=== PATIENT | female | born 1950 | race Caucasian/White ===

== ENCOUNTER 2020-10-15 14:07 | Outpatient (RCR) | payer MEDICARE, SELFPAY | END 2021-10-04 14:17 | disposition home or self-care (01) | LOC: HO.PT 14:07 | PROVIDERS: PCP Internal Medicine; Visit Provider Internal Medicine | DX: M54.5 Low back pain (principal) ==

== ENCOUNTER 2020-12-10 19:27 | Emergency (ER) | payer MEDICARE, SELFPAY ==
--- NOTE | ~2020-12-10 | XR_ITS ---
EXAMINATION: XR HIP, LEFT CLINICAL INFORMATION: Left hip pain. COMPARISON: None TECHNIQUE: Two views of the left hip. FINDINGS: There is no acute fracture or dislocation. Minimal bilateral hip degenerative joint changes are seen. Left hemipelvis is intact. The soft tissues are unremarkable. XR/XR hip LT w PEL1V IMPRESSION: Minimal bilateral hip degenerative joint changes without acute fracture.
[2020-12-10 19:56] VITALS: BP 164/74; PULSE 88; RESP 16; TEMP 37.1; O2SAT 97; BMI 30.7
[2020-12-10] MEDS: Acetaminophen 325 MG TABLET 650 MG PO (20:57)
[2020-12-10 21:42] LABS: Glucose Urine UA NEG (NEG); Leukocyte Esterase Urine TRACE (NEG); Nitrite Urine NEG (NEG); Specific Gravity - Urine <= 1.005 (1.005-1.025); UACC Culture Trigger YES; Urine Blood NEG (NEG); Urine Ketones NEG (NEG); Urine Protein NEG (NEG-TRACE)
[2020-12-10 21:43] LABS: Appearance Urine CLEAR; Color Urine COLORLESS
[2020-12-10 21:54] VITALS: BP 171/79; PULSE 81; RESP 18; TEMP 36.7; O2SAT 97
[2020-12-10 21:57] LABS: RBC Urine 0 /HPF (0); Squamous Epithelial Cell Urine TRACE /LPF; WBC Clumps Urine NOTED
[2020-12-10] MEDS: oxyCODONE HCl Immed Release 5 MG TABLET PO (22:21)
[2020-12-10] MEDS: Ketorolac Tromethamine 15 MG/ML VIAL IM (22:21)
--- NOTE | 2020-12-10 23:01 | ED.BACK ---
HPI - Back Pain/Injury General Chief Complaint: Extremity Injury, Lower Stated Complaint: groin pain Time Seen by Provider: 12/10/20 21:55 Source: patient Mode of arrival: ambulatory Limitations: no limitations History of Present Illness HPI Narrative: States pain in the left buttock region and left hip for the referral to the groin area of since yesterday has some pain couple of weeks ago improved with Tylenol yesterday she did a lot more cooking in bending stooping and did some climbing of stairs and now pain is worse in the left groin area. Denies any GI symptoms. Pain worsening with movement and certain activity described as ache. There is no associated fever or lower extremity swelling or rash. MD elicited complaint: back pain Pertinent past history: prior back pain Severity: moderate Similar Symptoms Previously: Yes Radiation: none Exacerbating factors: none Relieving factors: none Associated symptoms: denies other symptoms Work related injury: No Related Data Previous Rx's Medication Instructions Recorded acetaminophen 500 mg PO Q6H PRN #20 tab 12/10/20 diazepam [Valium] 2 mg PO BID PRN #14 tab 12/10/20 Allergies Allergy/AdvReac Type Severity Reaction Status Date / Time Penicillins [PCN] Allergy Mild RASH Verified 12/10/20 20:56 oxycodone [From PERCOCET] AdvReac Unknown DIZZYNESS Verified 12/10/20 20:56 Review of Systems Review of Systems: Constitutional: No Weight loss, No Fever, No Chills, No Night Sweats, No Fatigue, No Malaise ENT/Mouth: No Hearing loss, No Ear Pain, No Nasal Congestion, No Sinus Pain, No Hoarseness, No sore throat, No Rhinorrhea, No Swallowing Difficulty Eyes: No Eye Pain, No Swelling, No Redness, No Foreign Body, No Discharge, No Vision Changes Cardiovascular: No Chest Pain, No SOB, No Dyspnea on Exertion, No Orthopnea, No Edema, No Palpitations Respiratory: No Cough, No Sputum, No Wheezing, No Smoke Exposure, No Dyspnea Gastrointestinal: No Nausea, No Vomiting, No Diarrhea, No Constipation, No abdominal Pain, No Hematochezia, No Melena Genitourinary: no irregular bleeding, No Dysuria, No Urinary Frequency, No Hematuria, No Urinary Incontinence, No Urgency, No Flank Pain, No Urinary Flow Changes, No Hesitancy Musculoskeletal: No joint pain, No Myalgias, No Joint Swelling, as noted per HPI Skin: No Skin Lesions, No rash Neuro: No Weakness, No Numbness, No Paresthesias, No Loss of Consciousness, No Dizziness, No Headache Psych: No Anxiety/Panic, No Depression, No SI/HI/AH/VH, No Social Issues Heme/Lymph: No Bruising, No Bleeding,No Lymphadenopathy Endocrine: No Polyuria, No Polydipsia, No Temperature Intolerance Yes all other systems are reviewed and are negative [facility] Past Medical History Medical History (Updated 12/11/20 @ 00:01 by Background [place]) Breast CA Diabetes mellitus, type 2 Hypertension Hypothyroid Social History Social History Advance Directives: No Advance Directives Information Provided: No Physical Exam Vital Signs: Vital Signs: Last Vital Signs Temp 98.0 F 12/10/20 21:54 Pulse 81 12/10/20 21:54 Resp 18 12/10/20 21:54 BP 171/79 H 12/10/20 21:54 Pulse Ox 97 12/10/20 21:54 Body Mass Index 30.7 Reviewed Const: General: healthy appearing; No acute distress or intoxicated appearing Nutritional Appearance: average body habitus Orientation/consciousness: patient oriented x3 HENMT: Head: Yes normal to inspection Ears: hearing grossly normal bilaterally Eyes: General: appearance normal, both eyes and all related structures Visual Sousa: normal visual sousa by confrontation Neck: Neck: Yes normal visual inspection, No positive Brudzinski's sign, No positive Kernig's sign and No tender Thyroid: Thyroid normal Chest: Chest palpation & inspection: normal inspection of the chest Resp: Effort & Inspection: normal respiratory effort Auscultation: clear to auscultation bilaterally Cardio: Jugular venous distension: no JVD Rhythm: regular rhythm Heart sounds: S1 normal heart sound present and S2 normal heart sound present GI: Inspection: Yes normal to inspection Palpation (GI): Soft to palpation Percussion: Yes normal to percussion Auscultation: normal bowel sounds : General: Yes no CVA tenderness Back/Spine/Pelvis: Back: no CVA tenderness Skin: General skin exam: no rashes or lesions noted Neuro: General: patient oriented x3 Extrem: Other: Negative Homans General: Yes normal to inspection Left lower extremity: normal to inspection and hip/thigh Details: normal to inspection and abnormal ROM Details: pain with resistance (In the hip groin region) Details: to ABduction and to external rotation Course Course Course Narrative: X-ray with degenerative changes. AP exam consistent with hip flexor muscle strain. Feels better after IM Toradol. Has had this in the past now able to ambulate has appointment with Orthopedics on Thursday at [facility]. Will discharge home with Tylenol and Valium with clear return follow-up instructions. Feels comfortable plan. Stable for discharge. MDM - Back Pain/Injury Lab Data Labs: Lab Results 12/10/20 Range/Units 21:32 Urine Color COLORLESS Urine Appearance CLEAR Urine pH 6.0 (5.0-8.0) Ur Specific [place] <= 1.005 (1.005-1.025) Urine Protein NEG (NEG-TRACE) MG/DL Urine Glucose (UA) NEG (NEG) MG/DL Urine Ketones NEG (NEG) MG/DL Urine Blood NEG (NEG) Urine Nitrite NEG (NEG) Ur Leukocyte Esterase TRACE H (NEG) Urine RBC 0 (0) /HPF Urine WBC 5-9 H (0-4) /HPF Urine WBC Clumps NOTED Ur Squamous Epith Cells TRACE /LPF Urine Bacteria NONE /LPF Discharge Plan Discharge Clinical Impression: Strain of flexor muscle of left hip Patient Disposition: Home, Self-Care Instructions: Hip Sprain (ED) Additional Instructions: Your symptoms are consistent with her left hip flexor muscle strain Warm compresses Gentle stretching Home care as instructed Return if any concerns or worsening symptoms otherwise follow-up with her primary care doctor discussed Thank you Prescriptions: New diazepam [Valium] 2 mg tablet 2 mg PO BID PRN (Reason: muscle spasm) Qty: 14 RF: 0 acetaminophen 500 mg tablet 500 mg PO Q6H PRN (Reason: pain) Qty: 20 RF: 0 Referrals: Emilia Campoverde MD [Primary Care Provider] - 1 week Interventions: ED Discharge Assessment Last Done: 12/10/20 23:20 Discharge Date/Time: 12/10/20 23:26 Print Language: [place]
== END 2020-12-10 23:26 | disposition home or self-care (01) ==
PROVIDERS: Emergency Provider Internal Medicine; PCP Internal Medicine
DX: S76.012A Strain of muscle, fascia and tendon of left hip, initial encounter (principal); R10.32 Left lower quadrant pain; M25.552 Pain in left hip; X58.XXXA Exposure to other specified factors, initial encounter; Y93.9 Activity, unspecified; Y92.9 Unspecified place or not applicable; Y99.9 Unspecified external cause status; Z79.899 Other long term (current) drug therapy
CPT/HCPCS: 73502; 81001; 81003; 87086; 96372; 99284; J1885

== ENCOUNTER 2022-02-28 19:54 | Emergency (ER) | payer MEDICARE, SELFPAY ==
[2022-02-28 21:22] VITALS: BP 140/70; PULSE 96; RESP 18; TEMP 37.1; O2SAT 96; BMI 28.3
--- NOTE | 2022-02-28 21:39 | ED.DENTAL ---
HPI - Dental/Oral General Chief complaint: Dental/Oral Stated complaint: pain in mouth, previous cancer Time Seen by Provider: 02/28/22 21:33 Source: patient Mode of arrival: ambulatory Limitations: no limitations History of Present Illness MD Complaint: tooth pain (inside of mouth lesion - left inner cheek) Onset (ago): week(s) (3) Duration: constant Severity: mild Relieving factors: nothing Exacerbating factors: chewing Context: other (unsure maybe thought she bit it but cannot remember) Associated symptoms: other (white lesion with black area seen) Treatment prior to arrival: none Related Data Previous Rx's Medication Instructions Recorded acetaminophen 500 mg tablet 500 mg PO Q6H PRN pain #20 tabs 12/10/20 diazepam 2 mg tablet (Valium) 2 mg PO BID PRN muscle spasm #14 12/10/20 tabs doxycycline hyclate 100 mg capsule 100 mg PO BID 7 days #14 caps 02/28/22 Allergies Allergy/AdvReac Type Severity Reaction Status Date / Time Penicillins [PCN] Allergy Mild RASH Verified 02/28/22 21:22 oxycodone [From PERCOCET] AdvReac Unknown DIZZYNESS Verified 02/28/22 21:22 Review of Systems Review of Systems: Constitutional : No Fever, No Chills ENT/Mouth : No swallowing difficulty, no change in voice, positive lesion in mouth. Eyes: No Eye Pain, No Swelling Cardiovascular : No Chest Pain, No SOB Respiratory : No Cough, No Sputum Gastrointestinal : No Nausea, No Vomiting, No Diarrhea Genitourinary : No Dysuria Musculoskeletal : No Myalgias Skin : No rash Neuro : No Weakness, No Numbness, No Headache PMFSH Past Medical History Attestation statement: The following information was validated with the patient. Medical History Breast CA Diabetes mellitus, type 2 Hypertension Hypothyroid Social History Social History Patient Tobacco Use Status: Never used Tobacco Physical Exam Vital Signs: Vital Signs: Last Vital Signs Temp 98.8 F 02/28/22 21: Pulse 96 02/28/22 21: Resp 18 02/28/22 21:22 BP 140/70 H 02/28/22 21:22 Pulse Ox 96 02/28/22 21:22 O2 Del Method 02/28/22 21:22 BMI result Body Mass Index 28.3 Appearance: Alert. Oriented X3. No acute distress. Eyes: Pupils equal, round and reactive to light. ENT: R parotid area inside mouth is normal. L inner cheek at opening of parotid gland is firm white hard area with black necrotic 1mm firm area no fluctuance no erythema/swelling noted on cheek area is firm to touch and is tender no outward swelling/erythema on the cheek itself, no purulence expressed Neck: Normal inspection. CVS: Pulses normal. Respiratory: No respiratory distress. Abdomen: Soft and nontender. Skin: Skin warm and dry. Normal skin color. Normal skin turgor. Extremities: No lower extremity edema. Neuro: Oriented X 3. No motor deficit. No sensory deficit. MDM - Dental/Oral MDM Narrative Medical decision making narrative: 71 yo female hx of DM, prior breast cancer , HTN, HLD, arthritis comes in with 3 weeks of bothersome lesion on L inner cheek inside of her mouth. Thought it was from a bite but area is hard and firm. She doesn't remember biting it. The area does not appear infected and parotid gland does not appear obstructed. I will put her on antibiotics in case gland has infection and refer to ENT and PCP discussed concerns she needs biopsy or at least follow up to make sure that this isn't a serious lesion such as cancer. Discharge Plan Discharge Clinical Impression: Lesion of mouth Instructions: Sialoadenitis (ED) Additional Instructions: return to ED for any worsening symptoms or concerns please call your doctor next week there is a firm hard area near the opening of your parotid gland this needs to be followed closey to make sure it goes away - this could be something minor or something more serious like a mass you may need to see a specialist such as an ENT doctor Prescriptions: New doxycycline hyclate 100 mg capsule 100 mg PO BID 7 Days Qty: 14 0RF No Action diazepam [Valium] 2 mg tablet 2 mg PO BID PRN (Reason: muscle spasm) Qty: 14 0RF acetaminophen 500 mg tablet 500 mg PO Q6H PRN (Reason: pain) Qty: 20 0RF Referrals: Brendan Tom [Physician] - 1 week
== END 2022-02-28 22:37 | disposition home or self-care (01) ==
PROVIDERS: Emergency Provider Emergency Medicine; PCP Internal Medicine
DX: K13.70 Unspecified lesions of oral mucosa (principal); E11.9 Type 2 diabetes mellitus without complications; I10 Essential (primary) hypertension; E78.5 Hyperlipidemia, unspecified; Z85.3 Personal history of malignant neoplasm of breast
CPT/HCPCS: 99282; 99283

== ENCOUNTER 2023-04-01 21:14 | Emergency (ER) | payer MEDICARE, SELFPAY ==
--- NOTE | 2023-04-01 | ECG_ITS ---
Test Reason : CP/DIZZINESS Blood Pressure : / mmHG Vent. Rate : 081 BPM Atrial Rate : 081 BPM P-R Int : 154 ms QRS Dur : 076 ms QT Int : 386 ms P-R-T Axes : 050 -12 062 degrees QTc Int : 448 ms Normal sinus rhythm Normal ECG No previous ECGs available Referred By: Generic ED Physician Electronically Signed By:KAROLINA HUMPHREY
--- NOTE | ~2023-04-01 | CT_ITS ---
EXAMINATION: CT HEAD WITHOUT CONTRAST CLINICAL INFORMATION: TIA, no trauma COMPARISON: None available. TECHNIQUE: Contiguous axial imaging was performed from the skull base to vertex without intravenous administration of contrast. This CT examination was performed using dose optimization techniques as appropriate, variously including the following: *Automated exposure control *Adjustment of mA and/or kV according to patient size (this includes techniques or standardized protocols for targeted exams where dose is matched to indication/reason for exam; i.e. extremities or head) *Use of iterative reconstruction technique DLP: 576 mGy-cm FINDINGS: There is no evidence of acute intracranial hemorrhage or territorial infarction. No abnormal mass-effect or midline shift is seen. Currie to white matter differentiation is well preserved. No extra-axial fluid collections are identified. The ventricles are normal in size. There is no abnormal attenuation within the brain parenchyma. The osseous structures and soft tissues are normal. Partial opacification of the left maxillary sinus. The mastoid air cells are well-aerated. CT/CT head/brain wo IV con IMPRESSION: No acute intracranial pathology.
[2023-04-01 21:36] VITALS: BP 136/71; BP 151/66; PULSE 82; PULSE 93; RESP 16; TEMP 37.2; O2SAT 99; BMI 59.7
[2023-04-01 21:58] LABS: Hematocrit 36.9 % (37.0-47.0); Hemoglobin 12.3 g/dl (12.0-16.0); Mean Corpuscular HGB Conc 33.3 g/dl (31.0-35.0); Mean Corpuscular Hemoglobin 28.6 pg (27.0-33.0); Mean Corpuscular Volume 85.8 fL (80.0-98.0); Platelet Count 282 X10*3/uL (160-400); Red Cell Distribution Width 13.4 % (11.0-16.0); White Blood Count 7.8 X10*3/uL (4.8-10.8)
[2023-04-01 22:14] LABS: Alanine Aminotransferase 24 U/L (0-31); Albumin Level 4.2 g/dL (3.5-5.0); Alkaline Phosphatase 89 U/L (39-117); Anion Gap 14 (12-20); Aspartate Amino Transferase 23 U/L (5-31); Bilirubin Total 0.2 mg/dL (0.0-1.0); Blood Urea Nitrogen 22 mg/dL (9-16); Carbon Dioxide 23 mmol/L (22-29); Chloride 104 mmol/L (96-108); Creatinine Clr Calc Pharmacy 68.3; Estimated Glomerular Filt Rate 60; Glucose Random 138 mg/dL (60-115); Potassium 3.8 mmol/L (3.3-5.1); Sodium 137 mmol/L (135-145); Total Protein 7.9 g/dL (6.5-8.0)
[2023-04-01 22:21] LABS: Troponin-I High Sensitivity 19.9 ng/L (<3.5-17.0)
[2023-04-01 23:41] VITALS: BP 148/68; PULSE 80; RESP 18; TEMP 37.2; O2SAT 99
--- NOTE | 2023-04-01 23:46 | PC.NURSE ---
assumed care of patient at this time, respirations even and unlabored, skin pwd, alert and oriented x4. Pt verbalizes that she had a gradual feeling of dizziness and left light headed. She has a hx of vertigo. Pt now resting on stretcher, reports no pain, normal sinus on monitor
[2023-04-01 23:52] LABS: Appearance Urine Clear; Color Urine Yellow; Glucose Urine UA Negative (Negative); Leukocyte Esterase Urine Negative (Negative); Nitrite Urine Negative (Negative); PH 5.5 (5.0-9.0); Specific Gravity - Urine <= 1.005 (1.005-1.025); Urine Blood Negative (Negative); Urine Ketones Negative (Negative); Urine Protein Negative (Neg-Trace)
[2023-04-02 00:20] VITALS: BP 118/74; PULSE 72; RESP 12; TEMP 36.5; O2SAT 97
== END 2023-04-02 03:33 | disposition home or self-care (01) ==
PROVIDERS: Emergency Provider Internal Medicine
DX: R42 Dizziness and giddiness (principal); F41.1 Generalized anxiety disorder; F43.0 Acute stress reaction; R07.89 Other chest pain; I10 Essential (primary) hypertension; Z79.899 Other long term (current) drug therapy
CPT/HCPCS: 36415; 70450; 80053; 81003; 84484; 85027; 93005; 99284

== ENCOUNTER 2023-08-31 12:36 | Emergency (ER) | payer OTHER, MEDICARE, SELFPAY ==
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
[2023-08-31 12:48] VITALS: BP 113/71; PULSE 77; O2SAT 95
[2023-08-31 12:50] VITALS: BP 106/51; PULSE 82; RESP 16; TEMP 36.3; O2SAT 98; BMI 29.9
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
--- NOTE | 2023-08-31 12:55 | ECG_ITS ---
Test Reason : CP Blood Pressure : / mmHG Vent. Rate : 079 BPM Atrial Rate : 079 BPM P-R Int : 166 ms QRS Dur : 072 ms QT Int : 382 ms P-R-T Axes : 056 -13 057 degrees QTc Int : 438 ms Normal sinus rhythm Normal ECG When compared with ECG of 01-APR-2023 21:47, No significant change was found Referred By: Ena Rolon Electronically Signed By:El Guthrie
[2023-08-31 14:32] VITALS: BP 119/54; PULSE 80; RESP 20; O2SAT 94
--- NOTE | 2023-08-31 16:02 | PC.NURSE ---
c collar removed per Ena CREWS
== END 2023-08-31 16:18 | disposition home or self-care (01) ==
PROVIDERS: Emergency Provider Emergency Medicine
DX: R07.89 Other chest pain (principal); S16.1XXA Strain of muscle, fascia and tendon at neck level, initial encounter; V43.62XA Car passenger injured in collision with other type car in traffic accident, initial encounter; Y93.89 Activity, other specified; Y92.481 Parking lot as the place of occurrence of the external cause; Y99.9 Unspecified external cause status
CPT/HCPCS: 70450; 71046; 72125; 93005; 99284

== ENCOUNTER → 2023-08-31 12:55 | Outpatient (BNV) | payer MEDICARE, SELFPAY | PROVIDERS: Emergency Provider Emergency Medicine; Visit Provider Internal Medicine Cardiovascular Disease | DX: R07.9 Chest pain, unspecified (principal) | CPT/HCPCS: 93010 ==